=== PATIENT | male | born 1960 | race Caucasian/White ===

== ENCOUNTER 2016-08-23 06:35 | Outpatient (CLI) | payer OTHER ==
[2016-08-23 13:13] LABS: ALBUMIN/GLOBULIN RATIO 1.7 (1.0-2.2); BILIRUBIN,TOTAL 0.9 mg/dL (0.2-1.0); BUN - BLOOD UREA NITROGEN 21 mg/dL (6-20); CARBON DIOXIDE - CO2 27 mmol/L (21-32); CHLORIDE 104 mmol/L (101-111); CHOL/HDL RATIO 4.5 (<5.0); CHOLESTEROL 263 mg/dL; CREATININE 0.8 mg/dL (0.6-1.2); GFR - MDRD 100 (>89); GLUCOSE 91 mg/dL (70-100); HDL CHOLESTEROL 59 mg/dL; LDL/HDL RATIO 2.9 (<3.6); POTASSIUM 3.8 mmol/L (3.5-5.0); SODIUM 138 mmol/L (135-145); TOTAL PROTEIN 6.5 g/dL (6.7-8.2); TRIGLYCERIDES 149 mg/dL; VLDL CHOLESTEROL 30 mg/dL
== END 2016-08-23 06:36 | disposition home or self-care (01) ==
LOC: LAB.WCP 06:35
PROVIDERS: ATTEND Family Medicine
DX: E78.5 Hyperlipidemia, unspecified (principal); I25.10 Atherosclerotic heart disease of native coronary artery without angina pectoris; Z12.5 Encounter for screening for malignant neoplasm of prostate
CPT/HCPCS: 36415; 80053; 80061; 84153

== ENCOUNTER 2016-09-25 14:42 | Outpatient (CLI) | payer OTHER | END 2016-09-25 14:43 | disposition home or self-care (01) | LOC: SC 14:42 | PROVIDERS: ATTEND Nurse Practitioner Family | DX: G47.33 Obstructive sleep apnea (adult) (pediatric) (principal) | CPT/HCPCS: 99212; 99214 ==

== ENCOUNTER 2016-11-07 12:33 | Day surgery (SDC) | payer OTHER ==
[~2016-11-07 12:33] MED LIST: LACTATED RINGERS 1,000 ML IV ONE
[2016-11-07] MEDS ORDERED: fentaNYL 100 MCG/2 ML VIAL IVP ONE (13:11)
[2016-11-07] MEDS ORDERED: MIDAZOLAM 2 MG/2 ML VIAL IVP ONE (13:11)
[2016-11-07] MEDS ORDERED: LACTATED RINGERS 1,000 ML IV ONE (13:11)
[2016-11-07 14:24] VITALS: BP 101/75
== END 2016-11-07 12:34 | disposition home or self-care (01) ==
LOC: SDS 12:33
PROVIDERS: ATTEND Surgery
PROC: 0DJD8ZZ Inspection of Lower Intestinal Tract, Via Natural or Artificial Opening Endoscopic (ICD-10-PCS; principal; 2016-11-07 13:45)
DX: Z12.11 Encounter for screening for malignant neoplasm of colon (principal); Z80.0 Family history of malignant neoplasm of digestive organs; K64.8 Other hemorrhoids; I25.10 Atherosclerotic heart disease of native coronary artery without angina pectoris; I25.2 Old myocardial infarction; Z79.82 Long term (current) use of aspirin
CPT/HCPCS: 45378; J7120

== ENCOUNTER 2018-09-09 10:35 | Outpatient (CLI) | payer OTHER ==
--- NOTE | 2018-09-09 13:35 | XRAY Report ---
Reason: CAD Procedure Date: 09/09/2018 Accession Number: [id number] / [id number] Procedure: WCP - Chest 2 View X-Ray CPT Code: 72273 FULL RESULT: EXAM: CHEST RADIOGRAPHY EXAM DATE: 09/09/2018 10:49 AM. CLINICAL HISTORY: CAD. COMPARISON: None. TECHNIQUE: 2 views. FINDINGS: Lungs/Pleura: No focal opacities evident. No pleural effusion. No pneumothorax. Normal volumes. Mediastinum: Heart and mediastinal contours are unremarkable. Other: None. IMPRESSION: Normal 2-view chest radiography. RADIA
== END 2018-09-09 10:36 | disposition home or self-care (01) ==
LOC: DI.WCP 10:35
PROVIDERS: ATTEND Family Medicine
DX: I25.10 Atherosclerotic heart disease of native coronary artery without angina pectoris (principal); E78.5 Hyperlipidemia, unspecified; Z12.5 Encounter for screening for malignant neoplasm of prostate; Z11.59 Encounter for screening for other viral diseases
CPT/HCPCS: 36415; 71046; 80053; 80061; 84153; 85025; 86803

== ENCOUNTER 2018-09-09 10:47 | Outpatient (CLI) | payer OTHER ==
[2018-09-09 18:47] LABS: BASOPHILS % (AUTO) 0.5 %; EOSINOPHILS # (AUTO) 0.1 10^3/uL (0.0-0.7); EOSINOPHILS % (AUTO) 2.4 %; HGB - HEMOGLOBIN 14.3 g/dL (14.0-18.0); LYMPHOCYTES # (AUTO) 1.6 10^3/uL (1.5-3.5); MEAN CORPUSCULAR HGB CONC 32.3 g/dL (32.0-36.0); MEAN CORPUSCULAR VOLUME 89.9 fL (80.0-94.0); MEAN PLATELET VOLUME 10.9 fL (7.4-11.4); MONOCYTES # (AUTO) 0.6 10^3/uL (0.0-1.0); MONOCYTES % (AUTO) 9.3 %; NEUTROPHILS # (AUTO) 3.6 10^3/uL (1.5-6.6); NEUTROPHILS % (AUTO) 60.6 %; PLT - PLATELET COUNT 179 10^3/uL (130-450); RED BLOOD COUNT 4.93 10^6/uL (4.70-6.10); RED CELL DISTRIBUTION WIDTH 14.5 % (12.0-15.0); WHITE BLOOD COUNT 5.9 x10^3/uL (4.8-10.8)
[2018-09-09 19:00] LABS: ALBUMIN 4.5 g/dL (3.2-5.5); ALBUMIN/GLOBULIN RATIO 1.6 (1.0-2.2); ALKALINE PHOSPHATASE 43 IU/L (42-121); ALT ALANINE AMINOTRANSFERASE 42 IU/L (10-60); AST ASPARTATE AMINOTRANSFERASE 32 IU/L (10-42); BILIRUBIN,TOTAL 0.9 mg/dL (0.2-1.0); BUN - BLOOD UREA NITROGEN 19 mg/dL (6-20); CALCIUM 9.3 mg/dL (8.5-10.3); CARBON DIOXIDE - CO2 23 mmol/L (21-32); CHLORIDE 105 mmol/L (101-111); CHOL/HDL RATIO 2.5 (<5.0); CHOLESTEROL 146 mg/dL; CREATININE 0.9 mg/dL (0.6-1.2); GFR - MDRD 87 (>89); GLUCOSE 99 mg/dL (70-100); HDL CHOLESTEROL 58 mg/dL; LDL CHOLESTEROL,CALCULATED 70 mg/dL; LDL/HDL RATIO 1.2 (<3.6); SODIUM 139 mmol/L (135-145); TOTAL PROTEIN 7.3 g/dL (6.7-8.2); VLDL CHOLESTEROL 18 mg/dL
[2018-09-10 13:27] LABS: HEPATITIS C ANTIBODY NON-REACTIVE (NON-REACTIVE)
== END 2018-09-09 10:48 | disposition home or self-care (01) ==
LOC: LAB.WCP 10:47
PROVIDERS: ATTEND Family Medicine
DX: I25.10 Atherosclerotic heart disease of native coronary artery without angina pectoris (principal); E78.5 Hyperlipidemia, unspecified; Z12.5 Encounter for screening for malignant neoplasm of prostate; Z11.59 Encounter for screening for other viral diseases
CPT/HCPCS: 36415; 80053; 80061; 83721; 84153; 85025; 86803

== ENCOUNTER 2018-11-21 08:15 | Outpatient (CLI) | payer OTHER ==
[2018-11-21 09:14] VITALS: BP 120/70
--- NOTE | 2018-11-21 09:14 | SLEEP CARE CONSULTATION ---
Information from patient questionnaire entered by Umu Gray. I have reviewed and concur with the information entered by Umu Gray. This document represents the service I personally performed and the decisions made by me, Amelia Gleason, RN, MSN, SHELTER DIRECTOR. History of Present Illness Previous diagnosis: Mild, Obstructive Sleep Apnea-Hypopnea Syndrome AHI: 13.2 Reason for CPAP/BiPAP follow up: annual, other (last seen 2017) Equipment type: CPAP Equipment obtained from: [facility] Mask style: Nasal pillows Mask brand: Resmed Backup mask available: No (keep current mask when replaced as spare) Last cushion change: a year or more CPAP Compliance Data - Data Reviewed with Patient Average duration of nightly device use: 5.1 Compliance rate %: 80 (30 days / compliance 68.9% 180days) Current pressure setting (cmH2O): 11 Humidity settin Average residual AHI: 6.9 Central apnea: 0.7 Obstructive apnea: 1.3 Hypopnea: 4.9 Average large leak: 1 hr 3 mins Subjective Patient concerns: reports: mask discomfort (mild strap discomfort from tightening old headgear to fit), mask leak noise (wakes him a couple times a night), dry mouth, nose, throat (at times), other (straps are worn out). denies: aerophagia, air blowing in eyes, condensation in mask/hose, nasal congestion (mild dry mouth), epistaxis Observed to snore while using device: No Current pressure setting perceived as: comfortable On therapy, patient: reports: sleeping better, awakening more refreshed, being more awake and alert during the day, more rested overall. denies: drowsiness while driving Initial [place] Sleepiness Scale score: 9 Current [place] Sleepiness Scale score: 10 Allergies and Home Medications Known drug allergies: No Home medication list reviewed: Yes Allergy and home medication list: Zinc 50mg daily Crestor 20mg daily aspirin 81mg daily Review of Systems Review of systems same as previous: Yes Physical Exam Blood Pressure: 120/70 Cuff size: long Heart Rate: 59 O2 Saturation: 98 Height: 5 ft 7 in Weight (kg): 183 lb 9.6 oz Body Mass Index: 28.7 BMI Classification: Overweight Impression and Plan 1. Obstructive Sleep Apnea-Hypopnea Syndrome, mild, with good treatment compliance and with slightly elevated residual AHI. On CPAP therapy, the patient has better sleep quality and is more rested overall. The residual AHI could be due to patient weight increase as well as mask leaks. Thus I will change his CPAP pressure to autoCPAP at [id number]. He is also advised to lose weight. He has been adding about 5- 8 pounds each visit. I discussed how weight increase or decrease will affect his CPAP pressure as well as weight increase to health risks. His mask leaks may be reduced with updated equipment. His oral dryness could also be from mask leaks or opening his mouth during his sleep. Thus once his equipment is updated, if continued oral dryness he is to consider a chinstrap as his humidity is at maximum. Since he has an average of 5 hours of sleep. I again reviewed the health risks of insufficient sleep less than 5-6 hours such as cardiac disease and diabetes. Most people require 7-9 hours for optimal mental and physical function. Thus he is advised to get a minimum of 6-7 hours. Travel CPAP also discussed and questions answered. A supply replacement list given for reference. Patient advised to update supplies more frequently for more effective treatment. Since his apnea is more severe supine, he is advised to avoid supine sleep if unable to use CPAP. Patient's apnea severity and rationale for treatment to reduce apnea, improve sleep quality and reduce cardiovascular and cerebrovascular events was reviewed. I also reviewed the benefit of consistent device use of CPAP for hypertension, cardiac disease * * Change CPAP pressure to 11-13 cmH2O * update supplies * consider chinstrap * obtain more sleep * Notify me if snoring with mask or feeling that the pressure is too much or too little * Attempt to lose weight * Return for follow up in 2 months, or sooner if concerns arise . I spent 100% of this 40 minute visit face to face with the patient with greater than 50% of this was spent time counseling the patient and coordination of care.
== END 2018-11-21 08:16 | disposition home or self-care (01) ==
LOC: SC 08:15
PROVIDERS: ATTEND Nurse Practitioner Family
DX: G47.33 Obstructive sleep apnea (adult) (pediatric) (principal)
CPT/HCPCS: 99212; 99215

== ENCOUNTER 2019-03-20 12:44 | Outpatient (CLI) | payer OTHER ==
[2019-03-20 13:43] VITALS: BP 134/80
--- NOTE | 2019-03-20 13:43 | SLEEP CARE CONSULTATION ---
Information from patient questionnaire entered by Umu Gray. I have reviewed and concur with the information entered by Umu Gray. This document represents the service I personally performed and the decisions made by me, Amelia Gleason, RN, MSN, CARE DIRECTOR RN. History of Present Illness Previous diagnosis: Mild, Obstructive Sleep Apnea-Hypopnea Syndrome AHI: 13.2 Reason for follow up: other (4 month) Equipment type: CPAP Equipment obtained from: [facility] (having difficulty getting supplies, took 3 plus attempts to update) Mask style: Nasal pillows Mask brand: Resmed Backup mask available: Yes Last cushion change: 5 weeks ago HPI additional information: The pressure was ordered to be changed for elevated residual but was not completed. Travel CPAP is requested due to excessive and inconvenience with current CPAP. 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 ). denies: aerophagia, mask discomfort, air blowing in eyes, mask leak noise, condensation in mask/hose, nasal congestion, epistaxis Observed to snore while using device: No Current pressure setting perceived as: comfortable On therapy, patient: reports: sleeping better, awakening more refreshed, being more awake and alert during the day, more rested overall. denies: drowsiness while driving Initial [place] Sleepiness Scale score: 9 Current [place] Sleepiness Scale score: 8 Allergies and Home Medications Known drug allergies: Yes Home medication list reviewed: Yes (stopped carvediol , no other changes ) Review of Systems Review of systems same as previous: Yes Physical Exam Blood Pressure: 134/80 Cuff size: long Heart Rate: 70 O2 Saturation: 95 Height: 5 ft 7 in Weight: 185 lb 6.4 oz Weight change since last visit: gained 2 pounds Body Mass Index: 29.0 BMI Classification: Overweight Impression and Plan 1. Obstructive Sleep Apnea-Hypopnea Syndrome, mild , with good treatment compliance and slightly elevated residual apnea control. On CPAP therapy, the patient has better sleep quality and is more rested overall. Since his CPAP pressure was not changed as ordered last visit, I will have my staff change the pressure in office. He brought his CPAP in and I will have it changed today. He also wants a travel CPAP. I explained it requires a prescription and is not covered by insurances. He would like the [employer] on the go. It can be used online and there is download capability. I explained it is not known if an inline adaptor is advailable to add moisture to air pressure. For oral dryness, he uses Biotene rinse. He just started Smart mouth and better. No other recommendations except update his CPAP which has a better humidity system. If continued supply problems , I informed him he could transfer to another company. It would require a DWO prescription. I will have my staff informe himof choices. To decrease mask leaks, he can try the CPAP pillow. A sample was shown and other styles can be bought online. He voiced frustration in getting supplies from current vendor. I informed him he could transfer to new DME. I will have him discuss options with my sales and events coordinator. If he chooses to transfer, he will need a DWO prescription written within 6 months of this visit. Patient will consider. Patient's apnea severity and rationale for treatment to reduce apnea, improve sleep quality and reduce cardiovascular and cerebrovascular events was reviewed. I also reviewed the benefit of consistent device use of CPAP for cardiac disease. Since his apnea is primarily in the supine position, he is advised to avoid supine sleep if unable to use CPAP. He has gained more weight and again advised to lose weight with rationale discussed as discussed at last visit. Continued weight gain will increase apnea risk and PAP pressure requirements. * * Change CPAP pressure to [id number] * Consider updating CPAP if oral dryness persists. * Travel CPAP set at 11-13 cmH20 * Notify me if snoring with mask or feeling that the pressure is too much or too little * Attempt to lose weight * Call this office if any problems using CPAP * Return for follow up in 1 year , or sooner if concerns arise * * Addendum: It was discovered his CPAP only has a trial of autoCPAP range for 30 days. Patient will bring back in his CPAP card in one month so I can adjust to new permanent pressure after review of data. Follow up with Sleep Care in: 1 year Time Spent with Patient (minutes): 40 I spent 100% of this visit face to face with the patient with greater than 50% of this was spent time counseling the patient and coordination of care.
== END 2019-03-20 12:45 | disposition home or self-care (01) ==
LOC: SC 12:44
PROVIDERS: ATTEND Nurse Practitioner Family
DX: G47.33 Obstructive sleep apnea (adult) (pediatric) (principal)
CPT/HCPCS: 99212; 99215

== ENCOUNTER 2019-10-26 17:47 | Emergency (ER) | payer OTHER ==
[2019-10-26] MEDS ORDERED: HYDROmorphone 1 MG/ML CARPUJECT IM STA (18:20)
--- NOTE | 2019-10-26 18:40 | ED Physician Documentation ---
PD HPI LOWER EXT INJURY - Stated complaint Stated Complaint: KNEE INJ - Chief complaint Chief Complaint: Trauma Ext - History obtained from History obtained from: Patient - History of Present Illness PD HPI LOW EXT INJURY LOCATION: Left, Knee Type of injury: Fall Where injury occurred: Other (Jumping off of a boat onto the dock) Timing - onset: How many hours ago (1) Timing - duration: Hours (1) Timing - details: Abrupt onset Pain level max: 10 Pain level now: 9 Improved by: Rest, Ice, Immobilization Worsened by: Moving, Palpating Associated symptoms: No: Weakness, Numbness, Tingling, Swelling, Discolored Contributing factors: No: Anticoagulated, Prior ortho surgery, Prosthetic joint Similar symptoms before: Has not had sx before Recently seen: Not recently seen Review of Systems Constitutional: denies: Fever GI: denies: Vomiting Musculoskeletal: denies: Neck pain, Back pain Neurologic: denies: Headache PD PAST MEDICAL HISTORY - Past Medical History Cardiovascular: Coronary artery disease Respiratory: None Endocrine/Autoimmune: None GI: None : None HEENT: None Psych: None Musculoskeletal: None Derm: None - Past Surgical History Past Surgical History: Yes Cardiovascular: Coronary stent - Present Medications Home Medications: Ambulatory Orders Medication Instructions Recorded Confirmed Aspirin Chewable [St Stan 81 mg PO DAILY 08/20/15 10/26/19 Aspirin] Rosuvastatin Calcium [Crestor] 20 mg PO DAILY 11/07/16 10/26/19 Ibuprofen [Motrin] 800 mg PO Q8H PRN #30 tablet 10/26/19 Oxycodone HCl/Acetaminophen 1 - 2 each PO Q6H PRN #14 tablet 10/26/19 [Percocet 5-325 mg Tablet] - Allergies Allergies/Adverse Reactions: Allergies Allergy/AdvReac Type Severity Reaction Status Date / Time No Known Drug Allergies Allergy Verified 10/26/19 17:53 - Social History Does the pt smoke?: No Smoking Status: Never smoker Does the pt drink ETOH?: Yes Does the pt have substance abuse?: No - Immunizations Immunizations are current?: No Immunizations: TDAP >10years/unknown PD ED PE NORMAL - Vitals Vital signs reviewed: Yes - General General: Alert and oriented X 3, No acute distress - HEENT HEENT: Moist mucous membranes - Neck Neck: Supple, no meningeal sign - Cardiac Cardiac: RRR - Respiratory Respiratory: No respiratory distress, Clear bilaterally - Derm Derm: Warm and dry - Extremities Extremities: Other (L knee - swelling to the anterior knee, palpable deformity to the inferior patella. high riding patella. Unable to tolerate other ligamentous testing.) - Neuro Neuro: Alert and oriented X 3 Results - Vitals Vitals: Vital Signs - 24 hr 10/26/19 10/26/19 10/26/19 17:49 18:00 19:42 Temperature 37 C 37 C Heart Rate 75 72 60 Respiratory 18 15 20 Rate Blood Pressure 152/87 H 138/84 H 149/86 H O2 Saturation 97 96 95 Oxygen O2 Source Room air - Rads (name of study) Left knee x-ray Radiology: Prelim report reviewed, EMP read contemporaneously, See rad report (Soft tissue irregularity and edema in the region of the patellar tendon is suspicious for a patellar tendon injury. There is mild patella fariba that is new when compared to the prior radiographs from 04/10/2017. MRI may be obtained for further evaluation if indicated. ) PD MEDICAL DECISION MAKING - ED course Complexity details: reviewed results, re-evaluated patient, considered differential, d/w patient, d/w change consultant ED course: Patient with a patellar tendon rupture. Discussed the case with Dr. Cao, orthopedics who recommends follow-up in clinic this week. Patient placed in a knee immobilizer, given crutches and pain medication. He will contact his PCP tomorrow to have an MRI urgently scheduled for the orthopedic appointment. Patient and family counseled regarding signs and symptoms for which I believe and urgent re-evaluation would be necessary. Patient with good understanding of and agreement to plan and is comfortable going home at this time This document was made in part using voice recognition software. While efforts are made to proofread this document, sound alike and grammatical errors may occur. Departure - Departure Disposition: 01 Home, Self Care Clinical Impression: Patellar tendon rupture Qualifiers: Encounter type: initial encounter Laterality: left Qualified Code(s): S86.812A - Strain of other muscle(s) and tendon(s) at lower leg level, left leg, initial encounter Condition: Good Instructions: Kneecap Probs Common Follow-Up: Jose Juárez DO [Primary Care Provider] - Ector Cao MD [Provider Admit Priv/Credential] - Prescriptions: Ibuprofen [Motrin] 800 mg PO Q8H PRN #30 tablet PRN Reason: PAIN &/OR FEVER Oxycodone HCl/Acetaminophen [Percocet 5-325 mg Tablet] 1 - 2 each PO Q6H PRN #14 tablet PRN Reason: pain Comments: Return if you worsen. Follow-up with orthopedics this week for further care. Contact Dr. Juárez's office tomorrow to see if they can get your MRI scheduled urgently in the next day or 2 for preoperative purposes for orthopedics. Keep the knee immobilizer on. Use the crutches to help you move Do not drink alcohol or drive while on narcotic pain medicine. Note that many narcotic pain relievers also contain tylenol/acetaminophen. Please ensure that your total dose of acetaminophen from all sources does not exceed 3 grams (3000mg) per day. You may constipated on this medication, take a stool softener such as "Colace" twice a day while you are on it. Also recommend a [id number]-zor-qzyvlqs laxative such as senna or MiraLAX any day that you do not have a bowel movement. If you received narcotic pain medication in the emergency department, do not dr canela or operate machinery for the next 24 hours. Discharge Date/Time: 10/26/19 19:56
--- NOTE | 2019-10-26 19:03 | XRAY Report ---
PROCEDURE: Knee 2 View RT INDICATIONS: RT KNEE INJ, POSSIBLE PATELLAR TENDON TEAR TECHNIQUE: 2 views of the right knee were acquired. COMPARISON: Right knee radiographs dated 04/10/2017. FINDINGS: Bones: No acute fractures or dislocations. No suspicious bony lesions. There is mild patella fariba on lateral view. Soft tissues: There soft tissue in the region of the patellar tendon appears irregular, suspicious fo r acute patellar tendon injury. There is mild prepatellar edema. IMPRESSION: Soft tissue irregularity and edema in the region of the patellar tendon is suspicious fo r a patellar tendon injury. There is mild patella fariba that is new when compared to the prior radiogr aphs from 04/10/2017. MRI may be obtained for further evaluation if indicated. Reviewed by: Mark Baker MD on 10/26/2019 7:02 PM PDT Approved by: Mark Baker MD on 10/26/2019 7:02 PM PDT Station ID: [id number]
[2019-10-26] MEDS ORDERED: IBUPROFEN 800 MG TABLET PO STA (19:28)
[2019-10-26] MEDS ORDERED: oxyCODONE 5 MG TABLET PO STA (19:28)
[2019-10-26 19:45] VITALS: BP 149/86
== END 2019-10-26 19:56 | disposition home or self-care (01) ==
LOC: ED 17:47
DX: S86.812A Strain of other muscle(s) and tendon(s) at lower leg level, left leg, initial encounter (principal); X50.9XXA Other and unspecified overexertion or strenuous movements or postures, initial encounter; Y93.39 Activity, other involving climbing, rappelling and jumping off; Y92.89 Other specified places as the place of occurrence of the external cause
CPT/HCPCS: 73560; 96372; 99283; 99284; A9270; J1170

== ENCOUNTER 2019-10-29 16:36 | Outpatient (CLI) | payer OTHER ==
--- NOTE | 2019-10-30 13:11 | MRI Report ---
PROCEDURE: Knee LT W/O INDICATIONS: PATELLAR TENDON RUPTURE TECHNIQUE: Noncontrast sagittal PD fast spin echo and T2 fast spin echo with fat saturation, sagittal 3-D gradie nt sequence with fat saturation; coronal T1 spin echo and PD fast spin echo with fat saturation, and axial PD fast spin echo with fat saturation through the knee. COMPARISON: X-ray left knee, 10/26/2019. FINDINGS: Image quality: Excellent. Menisci: The medial and lateral menisci demonstrate normal morphology and internal signal. The meni scal root ligaments appear intact. Cruciate ligaments: The anterior and posterior cruciate ligaments appear intact. Medial structures: The medial collateral ligament appears intact. The semimembranosus tendon insert ions and meniscocapsular junction appear intact. Visualized portions of the pes anserinus tendons ap pear normal. No abnormal bursal fluid. Lateral structures: The lateral collateral ligament, long and short heads of the biceps femoris tend on appear intact. The popliteus tendon appears normal. Iliotibial band appears normal. Anterior structures: The patellar tendon is ruptured. There is superior subluxation of patella. The patellar tendon is retracted distally. There is soft tissue edema and hematoma adjacent to the prepat ellar and infrapatellar area. Quadriceps tendons appears intact but mildly thickened consistent with tendinitis. No femoral trochlear dysplasia or ventral trochlear prominence. Bones and cartilage: No bone marrow contusions or fractures. The cartilage of the medial and latera l femorotibial compartments, as well as the patellofemoral compartment, appears normal in thickness. There is moderate degeneration of the proximal tibiofibular joint with joint space narrowing, periar ticular osteophyte and chondrosis. Joint space: There is physiologic knee joint fluid. No Montgomery?s cyst. Normal appearing synovial pli are incidentally noted. IMPRESSION: 1. Complete patellar tendon rupturingm with distal retraction of patellar tendon and superior subluxa tion of patella (patella fariba). There is soft tissue edema and hematoma in the prepatellar and infrap atellar area. 2. Quadriceps tendinitis. 3. Moderate degeneration of the proximal tibiofibular joint. Reviewed by: Ayaz Huntley MD on 10/30/2019 12:10 PM AKDT Approved by: Ayaz Huntley MD on 10/30/2019 12:10 PM AKDT Station ID: [id number]
== END 2019-10-29 16:37 | disposition home or self-care (01) ==
LOC: DI 16:36
PROVIDERS: ATTEND Family Medicine
DX: S76.112A Strain of left quadriceps muscle, fascia and tendon, initial encounter (principal); M76.892 Other specified enthesopathies of left lower limb, excluding foot; M17.12 Unilateral primary osteoarthritis, left knee

== ENCOUNTER 2019-10-31 08:48 | Day surgery (SDC) | payer OTHER ==
[2019-10-31] MEDS ORDERED: LACTATED RINGERS 1,000 ML IV ONE ×2 (08:51→12:46)
[2019-10-31] MEDS ORDERED: HYDROmorphone 0.5 MG/0.5 ML SYRINGE IVP PRN (09:23)
[2019-10-31] MEDS ORDERED: ATROPINE ABBOJECT 1 MG/10 ML SYRINGE IVP PRN (09:23)
[2019-10-31] MEDS ORDERED: fentaNYL 100 MCG/2 ML VIAL IVP PRN (09:23)
[2019-10-31] MEDS ORDERED: ONDANSETRON 4 MG/2 ML VIAL IVP PRN (09:23)
[2019-10-31] MEDS ORDERED: MORPHINE 2 MG/ML CARPUJECT IVP PRN (09:23)
[2019-10-31] MEDS ORDERED: NALOXONE 0.4 MG/ML VIAL IVP PRN (09:23)
[2019-10-31] MEDS ORDERED: METOCLOPRAMIDE 10 MG/2 ML VIAL IVP PRN (09:23)
[2019-10-31] MEDS ORDERED: ePHEDrine 50 MG/ML VIAL IVP PRN (09:23)
--- NOTE | 2019-10-31 09:23 | ANESTHESIA ---
Pre-Anesthesia VS, & Labs - Diagnosis ruptured left knee patellar ligament - Procedure patella ligament repair Vital Signs: Temp Pulse Resp BP Pulse Ox 37.4 C 77 18 135/92 H 98 10/31/19 09:06 10/31/19 09:06 10/31/19 09:06 10/31/19 09:06 10/31/19 09:06 Height 5 ft 7 in Weight (kg) 85.2 kg Body Mass Index 29.0 - NPO >8 hours - Lab Results Lab results reviewed: Yes Home Medications and Allergies Aspirin Chewable [St Stan Aspirin] 81 mg PO DAILY 08/20/15 Rosuvastatin Calcium [Crestor] 20 mg PO DAILY 11/07/16 Allergies/Adverse Reactions: Allergies Allergy/AdvReac Type Severity Reaction Status Date / Time No Known Drug Allergies Allergy Verified 10/26/19 17:53 Anes History & Medical History - Anesthetic History Anesthesia Complications: reports: No previous complications Family history of Anesthesia Complications: Denies Family history of Malignant Hyperthermia: Denies - Medical History Cardiovascular: reports: High cholesterol, Coronary artery disease (Stent in 2012, no chest pain or heart problems since), [place] Pulmonary: reports: Sleep apnea, CPAP use Gastrointestinal: reports: None Urinary: reports: None Musculoskeletal: reports: Osteoarthritis Endocrine/Autoimmune: reports: None Skin: reports: None Smoking Status: Never smoker - Surgical History General: Colonoscopy Cardiothoracic: Coronary stent Results - EKG Results EKG Comparison: Reviewed EKG, Normal EKG Exam General: Alert, Oriented x3, Cooperative, No acute distress Dental: WNL Mouth Openin Fingerbreadth Neck Mobility: Normal Mallampati classification: II Respiratory: Lungs clear, Normal breath sounds, No respiratory distress, No accessory muscle use Cardiovascular: Regular rate, Normal S1, Normal S2, No murmurs Plan Anesthesia Type: General, Femoral Block Regional Block: Per Surgeon's request for Post Op pain control Consent for Procedure(s) Verified and Reviewed: Yes Code Status: Attempt Resuscitation ASA classification: 3-Severe systemic disease Is this case an emergency?: No
[2019-10-31] MEDS ORDERED: CEFAZOLIN SODIUM IN 0.9 % NACL 2 GM/100 ML BAG IV ONE (09:24)
[2019-10-31] MEDS ORDERED: LACTATED RINGERS 1,000 ML IV SCH (10:00)
[2019-10-31] MEDS ORDERED: DEXAMETHASONE 4 MG/ML VIAL IVP ONE (10:39)
[2019-10-31] MEDS ORDERED: ONDANSETRON 4 MG/2 ML VIAL IVP ONE (10:39)
[2019-10-31] MEDS ORDERED: KETOROLAC 30 MG/ML VIAL IVP ONE (10:39)
[2019-10-31] MEDS ORDERED: fentaNYL 100 MCG/2 ML VIAL IVP ONE (10:39)
[2019-10-31] MEDS ORDERED: LIDOCAINE-MPF 2% 5 ML VIAL IM ONE (10:39)
[2019-10-31] MEDS ORDERED: PROPOFOL 200 MG/20 ML VIAL IVP ONE (10:39)
[2019-10-31] MEDS ORDERED: MIDAZOLAM 2 MG/2 ML VIAL IVP ONE (10:39)
[2019-10-31] MEDS ORDERED: ACETAMINOPHEN 1,000 MG/100 ML 100 ML IV ONE (11:23)
[2019-10-31] MEDS ORDERED: KETOROLAC 15 MG/ML VIAL IVP STA (12:42)
[2019-10-31] MEDS ORDERED: oxyCODONE 5 MG TABLET PO PRN (12:42)
--- NOTE | 2019-10-31 12:45 | OPERATIVE REPORT ---
Operative Report - General Procedure Date: 10/31/19 Planned Procedure: Repair of ruptured patellar tendon left knee Pre-Op Diagnosis: Complete rupture patellar tendon left knee Procedure Performed: Repair of patellar tendon left knee Post Op Diagnosis: Same as preop diagnosis - Procedure Note Primary Surgeon: Dr. Javed Galicia Secondary Surgeon: LENI Birch Anesthesia Provider: Reginald Gutierrez Anesthesia Technique: General LMA, Regional block Estimated Blood Loss (mL): 25 Indications: This is a 59-year-old man who jumped and fell onto left knee and sustained injury to the left knee. The injury resulted in a complete rupture of the patellar tendon from the inferior pole of the left patella. His preoperative MRI scan documented the complete rupture and no other intra-articular pathology was noted. Findings: He had a typical appearing mop in rupture of the patellar tendon from the inferior pole of the patella with associated medial lateral retinaculum. There was 2 small focal partial articular cartilage defects in the femoral trochlea measuring 3 to 5 mm. The articular surface of the patella looked relatively normal. The knee was stable to drawer testing and varus/valgus stress testing Complications: None noted - Other Other Information/Narrative: The patient was brought to the operating room, placed in a supine position. A pneumatic tourniquet was applied to the proximal left thigh over cast padding and secured with a U drape. The left upper extremity was prepped and draped in a sterile manner in the usual fashion. A timeout procedure was performed by the entire operating room team and all were in agreement. The left leg was exsanguinated with a rubber bandage. The pneumatic tourniquet was elevated to 250 mmHg. A longitudinal midline incision was made, centered about the patella. The rupture was easily identified to the patellar tendon as the patella was retracted superiorly. The inferior pole of the patella was debrided to fresh bone.3 drill holes were made with a 2.8 mm drill bit from inferior to superior. At the exit site, a small incision was made. The patellar tendon was repaired with #5 Arthrex FiberWire suture using a Krakw locking stitch. 4 strands of suture exited the tendon and were taken through drill holes with a suture passer. The central hole had 2 sutures and the medial lateral holes each had 1 suture. The sutures were tied with the knee in extension. The patella was brought distally with the repair. The medial and lateral retinaculum were closed with #2 Arthrex FiberWire suture. A secure repair was achieved. The wound was irrigated. The tourniquet was deflated after approximately 46 minutes. Hemostasis was achieved with electrocautery. The subcutaneous tissue was closed with 2-0 Vicryl. The skin was closed with a 4-0 Monocryl subcuticular suture and Dermabond. After the Dermabond had dried, and a silver impregnated dressing was applied. A well-padded posterior long-leg splint was applied with the knee in extension. He received 2 g of Ancef intravenously prior to the incision. He tolerated the procedure well
--- NOTE | 2019-10-31 13:29 | ANESTHESIA POST OP EVALUATION ---
Anesthesia Post Eval - Post Anesthesia Eval Vitals: Last Vital Signs Temp 37 C 10/31/19 13:16 Pulse 68 10/31/19 13:16 Resp 16 10/31/19 13:16 BP 127/81 H 10/31/19 13:16 Pulse Ox 94 10/31/19 13:16 CV Function Including HR & BP: positive: Stable Pain Control: positive: Satisfactory Nausea & Vomiting: positive: Negative Mental Status: positive: Patient Participates Respiratory Status: Airway Patent Hydration Status: Satisfactory Anesthesia Complications: positive: None
[2019-10-31 13:40] VITALS: BP 117/77
== END 2019-10-31 08:49 | disposition home or self-care (01) ==
LOC: SDS 08:48
PROVIDERS: ATTEND Orthopaedic Surgery
PROC: 0LQR0ZZ Repair Left Knee Tendon, Open Approach (ICD-10-PCS; principal; 2019-10-31 10:00)
DX: S76.112A Strain of left quadriceps muscle, fascia and tendon, initial encounter (principal); G47.30 Sleep apnea, unspecified; I25.10 Atherosclerotic heart disease of native coronary artery without angina pectoris
CPT/HCPCS: 27380; J0690; J7120

== ENCOUNTER 2019-11-01 12:57 | Emergency (ER) | payer OTHER ==
--- NOTE | 2019-11-01 13:57 | ED Physician Documentation ---
PD HPI LOWER EXT INJURY - Stated complaint Stated Complaint: POST OP COMPLICATIONS - Chief complaint Chief Complaint: Ext Problem - History obtained from History obtained from: Patient, Family - History of Present Illness PD HPI LOW EXT INJURY LOCATION: Left, Knee Type of injury: Fall, Twist Where injury occurred: Other (dock) Timing - onset: How many days ago (6) Timing - duration: Days Timing - details: Abrupt onset, Still present Improved by: Rest, Immobilization Worsened by: Moving, Palpating Associated symptoms: Tingling, Swelling. No: Weakness, Numbness Contributing factors: No: Anticoagulated Similar symptoms before: Has not had sx before Recently seen: Surgery - Additional information Additional information: 59-year-old male with a history of coronary artery disease went to step off of his boat onto the dock caught his foot on a cleat and hyperextended his knee rupturing his patellar tendon. He had patellar tendon repair done here yesterday and he is placed into a long leg immobilizer with fiberglass. Today he is having issue with the splint digging into the back of his calf and the top of his thigh. He is quite uncomfortable with the splint. He called the orthopedic office and was asked to come to the emergency department. Review of Systems Constitutional: denies: Fever Nose: denies: Congestion Throat: denies: Sore throat Cardiac: denies: Chest pain / pressure Respiratory: denies: Dyspnea, Cough GI: denies: Abdominal Pain, Nausea, Vomiting : denies: Dysuria, Frequency Musculoskeletal: reports: Extremity pain, Extremity swelling Neurologic: denies: Generalized weakness, Focal weakness, Numbness PD PAST MEDICAL HISTORY - Past Medical History Cardiovascular: High cholesterol, Coronary artery disease, [place] Respiratory: Sleep apnea, CPAP use Endocrine/Autoimmune: None GI: None : None HEENT: None Psych: None Musculoskeletal: Osteoarthritis Derm: None - Past Surgical History Past Surgical History: Yes General: Colonoscopy Cardiovascular: Coronary stent - Present Medications Home Medications: Ambulatory Orders Medication Instructions Recorded Confirmed Aspirin Chewable [St Stan 81 mg PO DAILY 08/20/15 10/30/19 Aspirin] Rosuvastatin Calcium [Crestor] 20 mg PO DAILY 11/07/16 10/30/19 Ibuprofen [Motrin] 800 mg PO Q8H PRN #30 tablet 10/26/19 10/30/19 Oxycodone HCl/Acetaminophen 1 - 2 each PO Q6H PRN #14 tablet 10/26/19 10/30/19 [Percocet 5-325 mg Tablet] oxyCODONE [Roxicodone] 5 mg PO Q4-6H PRN #20 tablet 10/31/19 - Allergies Allergies/Adverse Reactions: Allergies Allergy/AdvReac Type Severity Reaction Status Date / Time No Known Drug Allergies Allergy Verified 10/26/19 17:53 - Social History Does the pt smoke?: No Smoking Status: Never smoker Does the pt drink ETOH?: Yes Does the pt have substance abuse?: No - Immunizations Immunizations are current?: No Immunizations: TDAP >10years/unknown PD ED PE NORMAL - Vitals Vital signs reviewed: Yes (hypertensive) - General General: Alert and oriented X 3, No acute distress, Well developed/nourished - HEENT HEENT: Atraumatic, PERRL, EOMI - Respiratory Respiratory: No respiratory distress - Derm Derm: Normal color, Warm and dry, No rash - Extremities Extremities: Other (The left lower leg is in a long leg posterior splint padded with Bernard compression. There is swelling at the ankle where the splint appears to be digging into the posterior calf. There is a similar feature at the upper end of the splint and the patient does not tolerate this. Distal n/v intact. ) - Neuro Neuro: No motor deficit, No sensory deficit, Normal speech - Psych Psych: Normal mood, Normal affect Results - Vitals Vitals: Vital Signs - 24 hr 11/01/19 11/01/19 13:07 15:09 Temperature 37.5 C Heart Rate 61 60 Respiratory 16 18 Rate Blood Pressure 140/80 H 126/73 O2 Saturation 97 100 Oxygen O2 Source Room air PD MEDICAL DECISION MAKING - ED course Complexity details: considered differential, d/w patient, d/w family ED course: The lower end of the splint is loosened with immediate relief to the patient. We will replace the splint with a slightly shorter version.The patient has proper leaf of his pain with loosening of the splint and a new splint is placed. Departure - Departure Disposition: 01 Home, Self Care Clinical Impression: External constriction of lower leg Qualifiers: Encounter type: initial encounter Laterality: left Qualified Code(s): S80.842A - External constriction, left lower leg, initial encounter Condition: Stable Instructions: ED Splint Care Fiberglass Follow-Up: Jose Juárez DO [Primary Care Provider] - Javed Galicia MD [Provider Admit Priv/Credential] - Discharge Date/Time: 11/01/19 15:34
[2019-11-01 15:33] VITALS: BP 126/73
== END 2019-11-01 15:34 | disposition home or self-care (01) ==
LOC: ED 12:57
DX: S80.8 Other superficial injuries of lower leg (principal); S70.34 External constriction of thigh; W49.09XA Other specified item causing external constriction, initial encounter; Y79.1 Therapeutic (nonsurgical) and rehabilitative orthopedic devices associated with adverse incidents; Z79.82 Long term (current) use of aspirin; Z95.5 Presence of coronary angioplasty implant and graft; R03.0 Elevated blood-pressure reading, without diagnosis of hypertension; I25.10 Atherosclerotic heart disease of native coronary artery without angina pectoris
CPT/HCPCS: 99282

== ENCOUNTER 2020-02-12 08:00 | Outpatient (CLI) | payer OTHER | END 2020-02-12 23:59 | disposition home or self-care (01) | LOC: LAB.N 08:00 | PROVIDERS: ATTEND Orthopaedic Surgery | DX: Z20.828 Contact with and (suspected) exposure to other viral communicable diseases (principal) ==

== ENCOUNTER 2020-02-18 11:51 | Day surgery (SDC) | payer OTHER ==
[2020-02-18] MEDS ORDERED: ACETAMINOPHEN 1,000 MG/100 ML 100 ML IV ONE (11:55)
[2020-02-18] MEDS ORDERED: CELECOXIB 100 MG CAPSULE PO ONE (11:55)
[2020-02-18] MEDS ORDERED: LACTATED RINGERS 1,000 ML IV ONE ×2 (11:56→14:11)
--- NOTE | 2020-02-18 12:58 | ANESTHESIA ---
Pre-Anesthesia VS, & Labs - Diagnosis arthrofibrosis left knee - Procedure left knee arthroscopy, lysis of adhesions Vital Signs: Temp Pulse Resp BP Pulse Ox 37.2 C 64 18 145/93 H 98 02/18/20 12:01 02/18/20 12:01 02/18/20 12:01 02/18/20 12:01 02/18/20 12:01 Height: 5 ft 7 in Weight (kg): 86 kg Body Mass Index: 29.7 BMI Classification: Overweight - NPO >8 hours - Lab Results Lab results reviewed: Yes Home Medications and Allergies Aspirin Chewable [St Stan Aspirin] 81 mg PO DAILY 08/20/15 Rosuvastatin Calcium [Crestor] 20 mg PO DAILY 11/07/16 Allergies/Adverse Reactions: Allergies Allergy/AdvReac Type Severity Reaction Status Date / Time No Known Drug Allergies Allergy Verified 02/18/20 12:02 Anes History & Medical History - Anesthetic History Anesthesia Complications: reports: No previous complications Family history of Anesthesia Complications: Denies Family history of Malignant Hyperthermia: Denies - Medical History Cardiovascular: reports: High cholesterol, Coronary artery disease, [place] Pulmonary: reports: Sleep apnea, CPAP use Gastrointestinal: reports: None Urinary: reports: None Musculoskeletal: reports: Osteoarthritis Endocrine/Autoimmune: reports: None Skin: reports: None Smoking Status: Never smoker - Surgical History General: Colonoscopy Cardiothoracic: Coronary stent Orthopedic: Other Results - EKG Results EKG Comparison: Reviewed EKG, Normal EKG Exam General: Alert, Oriented x3, Cooperative, No acute distress Dental: WNL Mouth Openin Fingerbreadth Neck Mobility: Normal Mallampati classification: I Respiratory: Lungs clear, Normal breath sounds, No respiratory distress, No accessory muscle use Cardiovascular: Regular rate, Normal S1, Normal S2, No murmurs Plan Anesthesia Type: General Consent for Procedure(s) Verified and Reviewed: Yes Code Status: Attempt Resuscitation ASA classification: 2-Mild systemic disease Is this case an emergency?: No
[2020-02-18] MEDS ORDERED: EPINEPHrine 1 MG/ML AMP ONE (13:13)
[2020-02-18] MEDS ORDERED: BACITRACIN ZINC OINT 1 PACKET TOP ONE (13:13)
[2020-02-18] MEDS ORDERED: PROPOFOL 200 MG/20 ML VIAL IVP ONE (13:37)
[2020-02-18] MEDS ORDERED: MIDAZOLAM 2 MG/2 ML VIAL IVP ONE (13:37)
[2020-02-18] MEDS ORDERED: LIDOCAINE-MPF 2% 5 ML VIAL IM ONE (13:37)
[2020-02-18] MEDS ORDERED: KETAMINE 500 MG/10 ML VIAL IVP ONE (13:37)
[2020-02-18] MEDS ORDERED: BUPIVACAINE 0.5% PF 30 ML VIAL INFIL ONE ×2 (13:48)
[2020-02-18] MEDS ORDERED: HYDROcod/ACETAM 5/325 MG TABLET PO PRN (13:58)
[2020-02-18] MEDS ORDERED: HYDROcod/ACETAM 10 MG/325 MG TABLET PO PRN (13:58)
[2020-02-18] MEDS ORDERED: KETOROLAC 15 MG/ML VIAL IVP STA (13:58)
--- NOTE | 2020-02-18 13:59 | OPERATIVE REPORT ---
Operative Report - General Procedure Date: 02/18/20 Planned Procedure: Manipulation of left knee under anesthesia Pre-Op Diagnosis: Arthrofibrosis left knee Procedure Performed: Manipulation of left knee under anesthesia Post Op Diagnosis: Same as preoperative diagnosis - Procedure Note Primary Surgeon: Javed Galicia M.D. Anesthesia Provider: Umu Neff CRNA Anesthesia Technique: MAC Estimated Blood Loss (mL): 0 Indications: This is a 59-year-old man who sustained a patellar tendon complete rupture approximately 3-1/2 months ago. He has reached a plateau in regaining knee flexion at about 80 degrees. He has full extension of the left knee. He has been going to physical therapy. He was consented for manipulation under anesthesia and possibility of knee arthroscopy. Does have a cardiac history and are anesthesia team was concerned since he has not been rechecked in a year by his commercial carpenter. Findings: He has full extension and 80 degrees of flexion left knee with decreased patellar mobility. - Other Other Information/Narrative: After satisfactory anesthesia achieved, patient was placed in a supine position. A timeout procedure was performed. He has a well-healed anterior scar from previous patellar tendon repair. His hip was placed in 90 degrees of flexion and a slow sustained pressure was placed on the anterior midshaft left tibia. Gradual and sustained improvement in flexion was achieved. Full flexion was achieved to the left knee and match the opposite right knee. Using aseptic technique, ChloraPrep, 20 cc of half percent Marcaine with epinephrine was injected through a lateral suprapatellar portal for postop pain relief. A dry sterile dressing and Bernard wrap was applied to the left knee. He tolerated procedure well
[2020-02-18] MEDS ORDERED: MORPHINE 2 MG/ML CARPUJECT IVP PRN (14:32)
[2020-02-18] MEDS ORDERED: fentaNYL 100 MCG/2 ML VIAL IVP PRN (14:32)
[2020-02-18] MEDS ORDERED: NALOXONE 0.4 MG/ML VIAL IVP PRN (14:32)
[2020-02-18] MEDS ORDERED: ONDANSETRON 4 MG/2 ML VIAL IVP PRN (14:32)
[2020-02-18] MEDS ORDERED: ATROPINE ABBOJECT 1 MG/10 ML SYRINGE IVP PRN (14:32)
[2020-02-18] MEDS ORDERED: METOCLOPRAMIDE 10 MG/2 ML VIAL IVP PRN (14:32)
[2020-02-18] MEDS ORDERED: ePHEDrine 50 MG/ML VIAL IVP PRN (14:32)
[2020-02-18] MEDS ORDERED: HYDROmorphone 0.5 MG/0.5 ML SYRINGE IVP PRN (14:32)
[2020-02-18 14:34] VITALS: BP 124/75
--- NOTE | 2020-02-18 14:35 | ANESTHESIA POST OP EVALUATION ---
Anesthesia Post Eval - Post Anesthesia Eval Vitals: Last Vital Signs Temp 36.2 C L 02/18/20 14:20 Pulse 61 02/18/20 14:33 Resp 21 02/18/20 14:33 BP 124/75 02/18/20 14:33 Pulse Ox 98 02/18/20 14:33 CV Function Including HR & BP: positive: Stable Pain Control: positive: Satisfactory Nausea & Vomiting: positive: Negative Mental Status: positive: Patient Participates Respiratory Status: Airway Patent Hydration Status: Satisfactory Anesthesia Complications: positive: None
[2020-02-18] MEDS ORDERED: LACTATED RINGERS 1,000 ML IV SCH (15:00)
== END 2020-02-18 11:52 | disposition home or self-care (01) ==
LOC: SDS 11:51
PROVIDERS: ATTEND Orthopaedic Surgery
DX: M24.662 Ankylosis, left knee (principal); S76.112S Strain of left quadriceps muscle, fascia and tendon, sequela; I25.10 Atherosclerotic heart disease of native coronary artery without angina pectoris; E78.5 Hyperlipidemia, unspecified; G47.30 Sleep apnea, unspecified; E66.3 Overweight; Z68.30 Body mass index [BMI] 30.0-30.9, adult; Z95.5 Presence of coronary angioplasty implant and graft; Z79.82 Long term (current) use of aspirin; Z79.899 Other long term (current) drug therapy; I25.2 Old myocardial infarction

== ENCOUNTER 2020-05-07 13:06 | Outpatient (CLI) | payer OTHER ==
--- NOTE | 2020-05-07 16:35 | XRAY Report ---
PROCEDURE: Knee 4 View LT INDICATIONS: ARTHROFIBROSIS OF LEFT KNEE TECHNIQUE: 4 views of the left knee(s) were acquired. COMPARISON: None. FINDINGS: Bones: No fractures or dislocations. No suspicious bony lesions. Mild osteoarthritis noted in all 3 compartments. Soft tissues: Trace nonspecific suprapatellar joint effusion. No suspicious soft tissue calcification s. IMPRESSION: 1. Mild left knee tricompartmental osteoarthritis. 2. Trace nonspecific left knee joint effusion. Reviewed by: Elaine Fisher MD, PhD on 05/07/2020 4:33 PM PST Approved by: Elaine Fisher MD, PhD on 05/07/2020 4:33 PM PST Station ID: [id number]
== END 2020-05-07 23:59 ==
LOC: DI.N 13:06
PROVIDERS: ATTEND Physician Assistant
DX: M24.662 Ankylosis, left knee (principal); M17.12 Unilateral primary osteoarthritis, left knee

== ENCOUNTER 2020-08-17 09:00 | Outpatient (CLI) | payer OTHER ==
[2020-08-17 18:12] LABS: BASOPHILS # (AUTO) 0.1 10^3/uL (0.0-0.1); EOSINOPHILS # (AUTO) 0.1 10^3/uL (0.0-0.7); EOSINOPHILS % (AUTO) 1.5 %; HCT - HEMATOCRIT 45.2 % (42.0-52.0); HGB - HEMOGLOBIN 14.8 g/dL (14.0-18.0); LYMPHOCYTES # (AUTO) 1.1 10^3/uL (1.5-3.5); LYMPHOCYTES % (AUTO) 21.7 %; MEAN CORPUSCULAR HGB CONC 32.7 g/dL (32.0-36.0); MEAN CORPUSCULAR VOLUME 88.6 fL (80.0-94.0); MEAN PLATELET VOLUME 10.8 fL (7.4-11.4); MONOCYTES # (AUTO) 0.4 10^3/uL (0.0-1.0); MONOCYTES % (AUTO) 8.2 %; NEUTROPHILS # (AUTO) 3.5 10^3/uL (1.5-6.6); NEUTROPHILS % (AUTO) 67.4 %; PLT - PLATELET COUNT 208 10^3/uL (130-450); RED CELL DISTRIBUTION WIDTH 14.4 % (12.0-15.0); WHITE BLOOD COUNT 5.3 x10^3/uL (4.8-10.8)
[2020-08-17 18:21] LABS: ALBUMIN 4.8 g/dL (3.2-5.5); ALBUMIN/GLOBULIN RATIO 1.8 (1.0-2.2); ALKALINE PHOSPHATASE 53 IU/L (42-121); ALT ALANINE AMINOTRANSFERASE 44 IU/L (10-60); AST ASPARTATE AMINOTRANSFERASE 38 IU/L (10-42); BUN - BLOOD UREA NITROGEN 15 mg/dL (6-20); CALCIUM 9.4 mg/dL (8.5-10.3); CARBON DIOXIDE - CO2 25 mmol/L (21-32); CHLORIDE 102 mmol/L (101-111); CHOL/HDL RATIO 2.5 (<5.0); CHOLESTEROL 171 mg/dL; CREATININE 0.9 mg/dL (0.6-1.2); GFR - MDRD 86 (>89); GLUCOSE 114 mg/dL (70-100); HDL CHOLESTEROL 69 mg/dL; LDL CHOLESTEROL,CALCULATED 84 mg/dL; LDL/HDL RATIO 1.2 (<3.6); POTASSIUM 3.8 mmol/L (3.5-5.0); SODIUM 140 mmol/L (135-145); TOTAL PROTEIN 7.4 g/dL (6.7-8.2); TRIGLYCERIDES 88 mg/dL; VLDL CHOLESTEROL 18 mg/dL
== END 2020-08-17 23:59 | disposition home or self-care (01) ==
LOC: LAB.WCP 09:00
PROVIDERS: ATTEND Family Medicine
DX: E78.5 Hyperlipidemia, unspecified (principal); Z12.5 Encounter for screening for malignant neoplasm of prostate; I25.10 Atherosclerotic heart disease of native coronary artery without angina pectoris
CPT/HCPCS: 36415; 80053; 80061; 83721; 84153; 85025

== ENCOUNTER 2020-08-17 14:10 | Outpatient (CLI) | payer OTHER ==
--- NOTE | 2020-08-17 15:22 | XRAY Report ---
PROCEDURE: Shoulder 2 View LT INDICATIONS: ADHESIVE CAPULITIS OF LEFT SHOULDER TECHNIQUE: 2 views of the shoulder were acquired. COMPARISON: None. FINDINGS: Bones: No fractures or dislocations. No suspicious bony lesions. Visualized ribs appear intact. M ild articular osteophyte formation at the, clinically joint. Severe periarticular ossified formation at the glenohumeral joint. Soft tissues: No suspicious soft tissue calcifications. IMPRESSION: Osteoarthritis. No acute fracture. No osseous lesion. If symptoms and/or clinical suspic ion for pathology continue, further assessment with repeat plain films, or advanced imaging (e.g., CT , MRI, or bone scan) is recommended for further assessment. Reviewed by: Deonte Chang MD on 08/17/2020 3:21 PM PDT Approved by: Deonte Chang MD on 08/17/2020 3:21 PM PDT Station ID: [id number]
== END 2020-08-17 14:11 | disposition home or self-care (01) ==
LOC: DI.N 14:10
PROVIDERS: ATTEND Family Medicine
DX: M19.012 Primary osteoarthritis, left shoulder (principal); E78.5 Hyperlipidemia, unspecified; Z12.5 Encounter for screening for malignant neoplasm of prostate; I25.10 Atherosclerotic heart disease of native coronary artery without angina pectoris
CPT/HCPCS: 36415; 80053; 80061; 83721; 84153; 85025

== ENCOUNTER 2020-09-08 15:52 | Outpatient (CLI) | payer OTHER ==
--- NOTE | 2020-09-08 16:39 | SLEEP CARE CONSULTATION ---
Information from patient questionnaire entered by Umu Gray. I have reviewed and concur with the information entered by Umu Gray. This document represents the service I personally performed and the decisions made by , Liz Maxwell ARNP. History of Present Illness Service Date and Time: 09/08/2020 1552 Previous diagnosis: Mild, Obstructive Sleep Apnea-Hypopnea Syndrome AHI: 13.2 (in 2012) Reason for follow up: annual (last seen 03/2019) Equipment type: CPAP Equipment obtained from: Other (buys online) Mask style: Nasal pillows Mask brand: Respironics (AirFit P10) Backup mask available: No (needs supplies) Last cushion change: 1 year ago Prior sleep studies: Yes Year and Where: 2013 - [facility] Type of Sleep Study: Polysomnography HPI additional information: BELINDA SOUSA was diagnosed to have mild, AHI 13.2, obstructive sleep apnea- hypopnea syndrome and returned today for CPAP therapy annual follow-up. CPAP Compliance Data - Data Reviewed with Patient Average duration of nightly device use: 6 hr 1 min Compliance rate %: 90 (180 days) Current pressure setting (cmH2O): 14.5 Humidity settin Average residual AHI: 4.0 Average large leak: 40 min 34 sec Subjective Patient concerns: reports: mask leak noise, dry mouth, nose, throat (dry mouth), other (OLD). denies: aerophagia, mask discomfort, air blowing in eyes, condensation in mask/hose, nasal congestion, epistaxis Observed to snore while using device: No Current pressure setting perceived as: comfortable On therapy, patient: reports: sleeping better, awakening more refreshed, being more awake and alert during the day, more rested overall. denies: drowsiness while driving Initial [place] Sleepiness Scale score: 10 (in 2013) Current [place] Sleepiness Scale score: 13 Allergies and Home Medications Home medication list reviewed: Yes (no changes) Review of Systems Review of systems same as previous: No (patella tendon repair and manipulation surgery on left knee) Physical Exam Heart Rate: 66 O2 Saturation: 97 Height: 5 ft 7 in Weight: 177 lb 8 oz Body Mass Index: 27.8 BMI Classification: Overweight Impression and Plan 1. Obstructive Sleep Apnea-Hypopnea Syndrome, mild, with good treatment compliance and good apnea control. On CPAP therapy, the patient has better sleep quality and is more rested overall. Patient has not been able to get supplies from a supplier since I will and drug stopped dealing with CPAP supplies. Patient was informed that another DME can be used. I will have my patient service coordinator inform of DME options. Patient advised to contact this office if further supply problems. Patient has not had a new machine since 2012 and his REMstar is a [employer] Respironics that may be on the recall list. We will replace his machine since it is over 5 years old and of reasonable use. Thus, the CPAP will be updated. A DWO prescription will be made. Compliance guidelines for new device and follow up discussed. Patient also requesting a prescription for a portable device that he has found online that he wants to purchase. I will write up a prescription since he does understand that this is an [id number] expense because most insurance companies do not pay for portable CPAP devices. I will follow up with patient after he obtains his new CPAP machine. Patient voiced understanding and agreement with plan of care. Patient's apnea severity and rationale for treatment to reduce apnea, improve sleep quality and reduce cardiovascular and cerebrovascular events was reviewed. I also reviewed the benefit of consistent device use of CPAP for cardiac disease. * Continue auto CPAP pressure at 14.5 cmH2O * Update machine and supplies * Portable CPAP machine prescription * Notify me if snoring with mask or feeling that the pressure is too much or too little * Attempt to lose weight * Call this office if any problems using CPAP * Return for follow up after he obtains new machine, or sooner if concerns arise Counseling Topics: Spare mask, Weight loss health impact Visit Type: In Office Time Spent with Patient (minutes): 20 Provider Statement: I spent 100% of the Face to Face Visit with the patient with greater than 50% spent counseling the patient and coordination of care.
== END 2020-09-08 15:53 | disposition home or self-care (01) ==
LOC: SC 15:52
PROVIDERS: ATTEND Nurse Practitioner Family
DX: G47.33 Obstructive sleep apnea (adult) (pediatric) (principal); E66.3 Overweight; Z68.27 Body mass index [BMI] 27.0-27.9, adult
CPT/HCPCS: 99212; 99213

== ENCOUNTER 2022-01-30 12:57 | Outpatient (CLI) | payer OTHER ==
--- NOTE | 2022-01-30 17:41 | XRAY Report ---
PROCEDURE: Knee Standing AP View Only INDICATIONS: R KNEE PX TECHNIQUE: Single frontal weightbearing view of the right knee COMPARISON: Right knee radiographs 10/26/2019 FINDINGS: No obvious evidence of acute displaced fracture on this single view exam. Mild medial and lateral com partment joint space narrowing is present, mild lateral compartment spurring present. IMPRESSION: Mild medial and lateral compartment degenerative changes. Reviewed by: Mark Joe MD on 01/30/2022 5:39 PM PST Approved by: Mark Joe MD on 01/30/2022 5:39 PM PST Station ID: [id number]
== END 2022-01-30 12:58 | disposition home or self-care (01) ==
LOC: DI.N 12:57
PROVIDERS: ATTEND Internal Medicine
DX: M17.11 Unilateral primary osteoarthritis, right knee (principal)

== ENCOUNTER 2022-07-04 13:06 | Emergency (ER) | payer OTHER ==
[2022-07-04 14:04] LABS: BASOPHILS % (AUTO) 0.4 %; EOSINOPHILS # (AUTO) 0.1 10^3/uL (0.0-0.7); EOSINOPHILS % (AUTO) 1.5 %; HCT - HEMATOCRIT 46.2 % (42.0-52.0); HGB - HEMOGLOBIN 15.4 g/dL (14.0-18.0); LYMPHOCYTES # (AUTO) 1.6 10^3/uL (1.5-3.5); LYMPHOCYTES % (AUTO) 23.8 %; MEAN CORPUSCULAR HEMOGLOBIN 29.1 pg (27.0-31.0); MEAN CORPUSCULAR HGB CONC 33.3 g/dL (32.0-36.0); MEAN CORPUSCULAR VOLUME 87.2 fL (80.0-94.0); MEAN PLATELET VOLUME 10.2 fL (7.4-11.4); MONOCYTES # (AUTO) 0.6 10^3/uL (0.0-1.0); MONOCYTES % (AUTO) 8.5 %; NEUTROPHILS # (AUTO) 4.5 10^3/uL (1.5-6.6); NEUTROPHILS % (AUTO) 65.5 %; PLT - PLATELET COUNT 190 10^3/uL (130-450); RED CELL DISTRIBUTION WIDTH 14.1 % (12.0-15.0); WHITE BLOOD COUNT 6.8 x10^3/uL (4.8-10.8)
--- NOTE | 2022-07-04 14:04 | ED Physician Documentation ---
PD HPI ABD PAIN - Stated complaint Stated Complaint: SHARP ABD PX - Chief complaint Chief Complaint: Abd Pain - History obtained from History obtained from: Patient - Additional information Additional information: 62-year-old gentleman with history of [place] with stents, DEBORAH on CPAP presents with moderate right upper quadrant pain present for about 24 hours now. He has never had it before. It is worse with deep breathing but he is not short of breath with it. He is not nauseous. Does worsen somewhat with movements. Denies changes in bowel habits. Declines pain medication on initial evaluation. PD PAST MEDICAL HISTORY - Past Medical History Cardiovascular: High cholesterol, Coronary artery disease, [place] Respiratory: Sleep apnea, CPAP use Endocrine/Autoimmune: None GI: None : None HEENT: None Psych: None Musculoskeletal: Osteoarthritis Derm: None - Past Surgical History Past Surgical History: Yes General: Colonoscopy Ortho: Other Cardiovascular: Coronary stent - Present Medications Home Medications: Ambulatory Orders Medication Instructions Recorded Confirmed Aspirin Chewable [St Stan 81 mg PO DAILY 08/20/15 07/04/22 Aspirin] Rosuvastatin Calcium [Crestor] 40 mg PO DAILY 07/04/22 07/04/22 - Allergies Allergies/Adverse Reactions: Allergies Allergy/AdvReac Type Severity Reaction Status Date / Time No Known Drug Allergies Allergy Verified 07/04/22 14:17 - Social History Does the pt smoke?: No Smoking Status: Never smoker Does the pt drink ETOH?: Yes Does the pt have substance abuse?: No - Immunizations Immunizations are current?: No Immunizations: TDAP >10years/unknown PD ED PE NORMAL - Vitals Vital signs reviewed: Yes - General General: Alert and oriented X 3, No acute distress - Cardiac Cardiac: RRR, No murmur - Respiratory Respiratory: No respiratory distress, Clear bilaterally - Abdomen Abdomen: Normal bowel sounds, Soft, Other (Tender in the right upper quadrant with positive Dewitt sign) - Back Back: No CVA TTP, No spinal TTP - Derm Derm: Normal color, Warm and dry - Extremities Extremities: No edema, No calf tenderness / cord - Neuro Neuro: Alert and oriented X 3, Normal speech Results - Vitals Vitals: Vital Signs - 24 hr 07/04/22 07/04/22 07/04/22 13:33 14:06 16:07 Temperature 36.4 C L Heart Rate 63 65 67 Respiratory 16 18 18 Rate Blood Pressure 148/90 H 145/93 H 135/91 H O2 Saturation 99 98 99 Oxygen O2 Source Room air - Labs Labs: Laboratory Tests 07/04/22 07/04/22 07/04/22 13:47 13:57 13:57 WBC 6.8 RBC 5.30 Hgb 15.4 Hct 46.2 MCV 87.2 MCH 29.1 MCHC 33.3 RDW 14.1 Plt Count 190 MPV 10.2 Neut # (Auto) 4.5 Lymph # (Auto) 1.6 [place] # (Auto) 0.6 Eos # (Auto) 0.1 Baso # (Auto) 0.0 Absolute Nucleated RBC 0.00 Nucleated RBC % 0.0 Sodium 139 Potassium 4.0 Chloride 102 Carbon Dioxide 27 Anion Gap 10.0 BUN 15 Creatinine 0.8 Estimated GFR (MDRD) 98 Glucose 108 H Calcium 9.4 Total Bilirubin 1.1 H AST 25 ALT 30 Alkaline Phosphatase 55 Total Protein 7.6 Albumin 4.6 Globulin 3.0 Albumin/Globulin Ratio 1.5 Lipase 29 Urine Color YELLOW Urine Clarity CLEAR Urine pH 6.0 Ur Specific Outlook 1.010 Urine Protein NEGATIVE Urine Glucose (UA) NEGATIVE Urine Ketones NEGATIVE Urine Occult Blood NEGATIVE Urine Nitrite NEGATIVE Urine Bilirubin NEGATIVE Urine Urobilinogen 0.2 (NORMAL) Ur Leukocyte Esterase NEGATIVE Ur Microscopic Review NOT INDICATED Urine Culture Comments NOT INDICATED - Rads (name of study) Right upper outer quadrant ultrasound shows fatty liver Relevant Findings:: Final report received, EMP independent interpretation of test PD Medical Decision Making - ED course ED course: 62-year-old gentleman presents with abdominal pain since yesterday in the right upper quadrant. Initially felt most likely to be biliary in origin, but ultrasound was negative. This was followed by CT which showed changes consistent with acute appendagitis. Note made of bladder wall thickening, but normal urinalysis. CBC and CMP are unremarkable. Departure - Departure Disposition: 01 Home, Self Care Clinical Impression: Abdominal pain Qualifiers: Abdominal location: right upper quadrant Qualified Code(s): R10.11 - Right upper quadrant pain Condition: Good Record reviewed to determine appropriate education?: Yes Instructions: ED Abdominal Pain Excl Appendx Male Comments: You were seen today for right-sided abdominal pain. Given the location the initial concern would have been for a gallbladder issue. The ultrasound for that did not show anything like that. We followed this up with a CAT scan which showed acute appendagitis. For that diagnosis no specific therapy is needed. We would presume your pain will be gone in a few days. Return if worse, or for any new or worsening symptoms.
[2022-07-04 14:18] LABS: ALBUMIN 4.6 g/dL (3.2-5.5); ALBUMIN/GLOBULIN RATIO 1.5 (1.0-2.2); BILIRUBIN,TOTAL 1.1 mg/dL (0.2-1.0); CALCIUM 9.4 mg/dL (8.5-10.3); CREATININE 0.8 mg/dL (0.6-1.2); TOTAL PROTEIN 7.6 g/dL (6.7-8.2)
[2022-07-04 14:38] LABS: BILIRUBIN,URINE NEGATIVE (NEGATIVE); CLARITY,URINE CLEAR (CLEAR); GLUCOSE, URINE (UA) NEGATIVE (NEGATIVE); KETONES,URINE (UA) NEGATIVE (NEGATIVE); LEUKOCYTE ESTERASE, URINE NEGATIVE (NEGATIVE); NITRITE,URINE NEGATIVE (NEGATIVE); OCCULT BLOOD,URINE NEGATIVE (NEGATIVE); PROTEIN,URINE NEGATIVE (NEGATIVE); UROBILINOGEN,URINE 0.2 (NORMAL) E.U./dL (NORMAL)
[2022-07-04] MEDS ORDERED: iohexoL-300 100 ML VIAL ONE (16:22)
--- NOTE | 2022-07-04 16:31 | Ultrasound Report ---
PROCEDURE: Abdomen Limited INDICATIONS: RUQ pain TECHNIQUE: Real-time focused scanning was performed of the abdomen, with image documentation. COMPARISONS: None. FINDINGS: Liver: Liver shows diffusely increased echogenicity without focal mass lesion. No intrahepatic duct al dilation. Gallbladder: Unremarkable. Biliary ducts: Intrahepatic bile ducts are non-dilated. Extrahepatic bile duct caliber measures 4.6 mm. Normal is 6-7 mm or less in diameter, or 10 mm or less post-cholecystectomy. Pancreas: Visualized portions of the pancreas are sonographically normal. Right kidney: Normal in size and echotexture. Right kidney measures 10.5 cm long. No hydronephrosis or nephrolithiasis. No solid masses. No complex renal cystic lesions which require follow-up. Aorta: Visualized aorta is normal in caliber at less than 3 cm. IVC: Intrahepatic inferior vena cava is patent. Miscellaneous: No free abdominal fluid. IMPRESSION: Hepatic fatty infiltration without focal mass lesion Reviewed by: John Kaur MD on 07/04/2022 3:30 PM AKDT Approved by: John aKur MD on 07/04/2022 3:30 PM AKDT Station ID: [id number]
[2022-07-04] MEDS ORDERED: iohexoL-300 100 ML VIAL IVP ONE (16:55)
--- NOTE | 2022-07-04 17:21 | CT Report ---
PROCEDURE: ABDOMEN/PELVIS W INDICATIONS: IV only, right-sided abdominal pain CONTRAST: 100mL Omni 300 TECHNIQUE: After the administration of intravenous contrast, 5 mm thick sections acquired from the diaphragms to the symphysis. 5 mm thick coronal and sagittal reformats were acquired. For radiation dose reducti on, the following was used: automated exposure control, adjustment of mA and/or kV according to mallory ent size. COMPARISON: None FINDINGS: Image quality: Excellent. Lung bases and heart: Unremarkable. Liver: Unremarkable. Gallbladder and biliary tree: Unremarkable. No biliary dilation. Spleen: Unremarkable. Pancreas: Unremarkable. Adrenals: Unremarkable. Kidneys and ureters: Unremarkable. Bowel and peritoneum: No bowel distension. No pathologic free fluid. Lymph nodes: No central or retroperitoneal adenopathy. Vessels: Unremarkable. PELVIS Reproductive organs: Unremarkable. Bladder: Mild diffuse bladder wall thickening. Lymph nodes: Unremarkable. Bones: No aggressive osseous abnormality. Other: Subjacent to the distal ascending colon near the hepatic flexure is inflammatory change center ed in the abdominal fat. The appearance suggests possible acute appendigitis. Reference image 36 of s dennise 3. Less likely is acute diverticulitis, as the colon does not appear inflamed. Small bilateral fat-containing inguinal hernias.. IMPRESSION: 1. Findings in the fat immediately lateral to the distal ascending colon/hepatic flexure most likely represent acute appendigitis. Less likely is diverticulitis, as the process appears centered in the f at, without inflammation of the adjacent colon. 2. Mild diffuse bladder wall thickening Reviewed by: Paul Pierce MD on 07/04/2022 5:20 PM PDT Approved by: Paul Pierce MD on 07/04/2022 5:20 PM PDT Station ID: [id number]
[2022-07-04 17:37] VITALS: BP 151/85
== END 2022-07-04 17:42 | disposition home or self-care (01) ==
LOC: ED 13:06
DX: R10.11 Right upper quadrant pain (principal)
CPT/HCPCS: 36415; 74177; 76705; 80053; 81003; 83690; 85025; 99283; 99284; Q9967; 81001; 87086

== ENCOUNTER 2023-07-13 13:08 | Outpatient (CLI) | payer OTHER ==
[2023-07-13 17:51] LABS: BASOPHILS # (AUTO) 0.1 10^3/uL (0.0-0.1); EOSINOPHILS # (AUTO) 0.2 10^3/uL (0.0-0.7); EOSINOPHILS % (AUTO) 3.5 %; HCT - HEMATOCRIT 42.8 % (42.0-52.0); LYMPHOCYTES # (AUTO) 1.3 10^3/uL (1.5-3.5); LYMPHOCYTES % (AUTO) 27.7 %; MEAN CORPUSCULAR HEMOGLOBIN 28.9 pg (27.0-31.0); MEAN CORPUSCULAR HGB CONC 32.7 g/dL (32.0-36.0); MEAN CORPUSCULAR VOLUME 88.4 fL (80.0-94.0); MONOCYTES # (AUTO) 0.5 10^3/uL (0.0-1.0); MONOCYTES % (AUTO) 9.6 %; NEUTROPHILS # (AUTO) 2.8 10^3/uL (1.5-6.6); PLT - PLATELET COUNT 189 10^3/uL (130-450); RED BLOOD COUNT 4.84 10^6/uL (4.70-6.10); RED CELL DISTRIBUTION WIDTH 13.9 % (12.0-15.0); WHITE BLOOD COUNT 4.8 x10^3/uL (4.8-10.8)
[2023-07-13 18:15] LABS: ALBUMIN 4.5 g/dL (3.2-5.5); ALKALINE PHOSPHATASE 46 IU/L (42-121); ALT ALANINE AMINOTRANSFERASE 24 IU/L (10-60); AST ASPARTATE AMINOTRANSFERASE 22 IU/L (10-42); BILIRUBIN,TOTAL 0.7 mg/dL (0.2-1.0); BUN - BLOOD UREA NITROGEN 19 mg/dL (6-20); CALCIUM 9.6 mg/dL (8.5-10.3); CARBON DIOXIDE - CO2 26 mmol/L (21-32); CHLORIDE 105 mmol/L (101-111); CHOL/HDL RATIO 2.4 (<5.0); CHOLESTEROL 141 mg/dL; CREATININE 0.9 mg/dL (0.6-1.3); GFR - MDRD 85 (>89); GLUCOSE 100 mg/dL (74-104); HDL CHOLESTEROL 60 mg/dL; LDL CHOLESTEROL,CALCULATED 69 mg/dL; LDL/HDL RATIO 1.2 (<3.6); POTASSIUM 4.1 mmol/L (3.5-4.5); SODIUM 137 mmol/L (135-145); TOTAL PROTEIN 6.8 g/dL (6.4-8.9); TRIGLYCERIDES 62 mg/dL (48-352); VLDL CHOLESTEROL 12 mg/dL
[2023-07-13 18:26] LABS: THYROID STIMULATING HORMONE 1.82 uIU/mL (0.34-5.60)
== END 2023-07-13 13:09 | disposition home or self-care (01) ==
LOC: LAB.N 13:08
PROVIDERS: ATTEND Internal Medicine
DX: Z01.84 Encounter for antibody response examination (principal); I10 Essential (primary) hypertension; E78.5 Hyperlipidemia, unspecified; Z12.5 Encounter for screening for malignant neoplasm of prostate; R53.83 Other fatigue
CPT/HCPCS: 36415; 80053; 80061; 83721; 84153; 84443; 85025; 86787